=== PATIENT | female | born 1980 | race Caucasian/White ===

== ENCOUNTER 2017-01-13 00:30 | Emergency (ER) | payer MEDICAID | END 2017-01-13 08:33 | disposition left against medical advice (07) | LOC: ER 07:39 | DX: O99.512 Diseases of the respiratory system complicating pregnancy, second trimester (principal); R06.02 Shortness of breath; Z53.21 Procedure and treatment not carried out due to patient leaving prior to being seen by health care provider; Z3A.00 Weeks of gestation of pregnancy not specified ==

== ENCOUNTER 2024-03-20 00:06 | Emergency (ER) | payer MEDICAID, MEDICARE ==
[~2024-03-20] VITALS: Ht 162.6 cm; Wt 91.0 kg
[2024-03-20] MEDS ORDERED: MAGNESIUM/ALUMINUM HYDROXIDE/SIMETHICONE 30ML UDC PO STA (00:13)
[2024-03-20 00:23] VITALS: BP 170/87; PULSE 63; RESP 18; TEMP 97.9; O2SAT 95
[2024-03-20 00:44] LABS: BASOPHILS % 0.4 % (0.0-2.0); DIFFERENTIAL COMMENT 0; EOSINOPHILS % 2.9 % (0.0-5.0); HEMATOCRIT. 33.2 % (36.0-48.0); HEMOGLOBIN. 10.7 g/dL (12.0-16.0); LYMPHOCYTES % 19.4 % (20.0-50.0); MEAN CORPUSCULAR HEMOGLOBIN 23.2 pg (28.0-32.0); MEAN CORPUSCULAR HGB CONC 32.3 g/dL (31.0-37.0); MEAN CORPUSCULAR VOLUME 71.8 fL (81.0-99.0); MEAN PLATELET VOLUME 8.1 fl (7.4-10.4); MONOCYTES % 7.2 % (2.0-8.0); NEUTROPHILS % 70.1 % (40.0-76.0); PLATELET 298 x1000/uL (130-400); RED BLOOD CELL COUNT 4.62 mill/uL (4.2-5.4); WHITE BLOOD COUNT 8.8 x1000/uL (4.5-11.0)
[2024-03-20 00:47] LABS: CHLORIDE 100 mEq/L (98-107); POTASSIUM 3.5 mEq/L (3.5-5.1); SODIUM 138 mEq/L (136-145)
[2024-03-20 00:47] LABS: CLARITY URINE CLOUDY (CLEAR); COLOR URINE YELLOW (YELLOW); GLUCOSE URINE NEGATIVE (NEGATIVE); KETONES URINE NEGATIVE (NEGATIVE); LEUKOCYTE ESTERASE URINE 1+ (NEGATIVE); NITRITE URINE NEGATIVE (NEGATIVE); OCCULT BLOOD URINE 2+ (NEGATIVE); PROTEIN URINE TRACE (NEGATIVE); SPECIFIC GRAVITY URINE 1.015 (1.005-1.030); UROBILINOGEN URINE 0.2 E.U./dL (0.2-1.0)
[2024-03-20 00:48] LABS: CALCIUM 12.1 mg/dL (8.7-10.4); CARBON DIOXIDE 30 mEq/L (21-32)
[2024-03-20 00:51] LABS: PROTHROMBIN TIME 11.2 sec (9.6-11.0)
[2024-03-20 00:53] LABS: GLUCOSE 112 mg/dL (70-105); UREA NITROGEN BLOOD 14 mg/dL (9-23)
[2024-03-20 01:00] LABS: TROPONIN I HIGH SENSITIVITY < 4 ng/L (3.0-34)
[2024-03-20 01:06] LABS: HCG SCREEN NEGATIVE
[2024-03-20 01:19] LABS: AMORPHOUS SEDIMENT URINE 1+ /lpf; BACTERIA URINE 1+; SQUAMOUS EPITHELIAL CELL URINE 1+ /lpf (RARE/1+)
[2024-03-20] MEDS ORDERED: MAG355OR21 MT (02:48)
[2024-03-20] MEDS ORDERED: ONDA4TAB50 MT (02:48)
[2024-03-20] MEDS: MAGNESIUM/ALUMINUM HYDROXIDE/SIMETHICONE 30ML UDC PO NR (03:49)
[2024-03-20] MEDS: VISCOUS LIDOCAINE 2% 15 ML UDC PO NR (03:49)
== END 2024-03-20 04:10 | disposition home or self-care (01) ==
LOC: ER 00:06
DX: R10.13 Epigastric pain (principal); E89.0 Postprocedural hypothyroidism; Z13.9 Encounter for screening, unspecified
CPT/HCPCS: 36415; 80048; 81003; 84484; 84703; 85025; 99283